=== PATIENT | female | born 1960 ===

== ENCOUNTER 2017-06-24 01:38 | Inpatient (IN) | payer MEDICARE, MEDICAID ==
[2017-06-24 01:51] VITALS: BMI 31.6
[2017-06-24] MEDS ORDERED: Sodium Chloride 0.9% 1,000 ML IV STA (02:00)
[2017-06-24 02:24] LABS: BASO % 0.5 % (0.0-2.0); EOS # 0.1 K/uL (0.0-0.7); EOS % 1.4 % (0.0-4.0); LYMPH # 1.1 K/uL (1.0-4.3); LYMPH % 14.1 % (20.0-40.0); MEAN CELL VOLUME 84.3 fl (81.0-99.0); MEAN CORPUSCULAR HEMOGLOBIN 28.9 pg (27.0-31.0); MEAN CORPUSCULAR HGB CONC 34.3 g/dL (33.0-37.0); MEAN PLATELET VOLUME 8.6 fl (7.2-11.7); MONO # 0.4 K/uL (0.0-0.8); MONO % 4.7 % (0.0-10.0); NEUT # 6.4 K/uL (1.8-7.0); NEUT % 79.3 % (50.0-75.0); NRBC % 0.1 % (0.0-0.0); RED CELL DISTRIBUTION WIDTH 14.4 % (11.5-14.5)
--- NOTE | 2017-06-24 02:25 | ED PDOC ---
HPI: Abdomen Time Seen by Provider: 06/24/17 01:51 Chief Complaint (Nursing): Abdominal Pain Chief Complaint (Provider): Abdominal pain History Per: Patient History/Exam Limitations: no limitations Onset/Duration Of Symptoms: Hrs (7) Current Symptoms Are (Timing): Still Present Context: Food Severity: Mild Location Of Pain/Discomfort: Epigastric Quality Of Discomfort: "Pain" Additional History Per: Patient Additional Complaint(s): 57 y/o female hx of HTN, c/o abdominal pain associated with nausea and vomiting for 7 hrs. Patient reports onset began after eating a turkey sandwich. Patient notes 3 episodes of NBNB vomiting. Pain is to the epigastric area that radiates to the mid-back. Denies fever or diarrhea. No cough, chest pain, or SOB. Past Medical History Reviewed: Historical Data, Nursing Documentation, Vital Signs Vital Signs: Last Vital Signs Temp 98.7 F 06/24/17 01:51 Pulse 58 L 06/24/17 01:51 Resp 16 06/24/17 01:51 BP 153/89 H 06/24/17 01:51 Pulse Ox 98 06/24/17 06:34 - Medical History PMH: Arthritis, Depression, Hyperthyroidism Denies: Chronic Kidney Disease - Family History Family History: States: Unknown Family Hx - Home Medications Home Medications: Ambulatory Orders Medication Instructions Recorded Baclofen 10 mg PO QID 07/04/14 FLUoxetine [Prozac] 10 mg PO DAILY 07/04/14 Gabapentin [Neurontin] 300 mg PO TID 07/04/14 Propylthiouracil 50 mg PO DAILY 07/04/14 Ibuprofen [Motrin] 600 mg PO Q6 PRN #20 tab 07/26/14 Ondansetron ODT [Zofran ODT] 4 mg PO Q6 PRN #16 odt 06/24/17 traMADol [Ultram] 50 mg PO Q6 PRN #12 tab 06/24/17 - Allergies Allergies/Adverse Reactions: Allergies Allergy/AdvReac Type Severity Reaction Status Date / Time latex Allergy RASH Verified 06/24/17 01:51 Review of Systems ROS Statement: Except As Marked, All Systems Reviewed And Found Negative Constitutional: Negative for: Fever Cardiovascular: Negative for: Chest Pain Respiratory: Negative for: Cough, Shortness of Breath Gastrointestinal: Positive for: Nausea, Vomiting (NBNB), Abdominal Pain. Negative for: Diarrhea Physical Exam - Reviewed Nursing Documentation Reviewed: Yes Vital Signs Reviewed: Yes - Physical Exam Appears: Positive for: Non-toxic, Uncomfortable Head Exam: Positive for: ATRAUMATIC Skin: Positive for: Normal Color, Warm, DRY Cardiovascular/Chest: Positive for: Regular Rate, Rhythm. Negative for: Murmur Respiratory: Positive for: Normal Breath Sounds. Negative for: Rales, Rhonchi, Wheezing Gastrointestinal/Abdominal: Positive for: Soft, Tenderness (Epigastric and RUQ tenderness). Negative for: Guarding, Rebound Neurologic/Psych: Positive for: Alert, Oriented - Laboratory Results Result Diagrams: 06/24/17 02:21 06/24/17 02:21 - ECG O2 Sat by Pulse Oximetry: 98 (RA) Pulse Ox Interpretation: Normal Medical Decision Making Medical Decision Making: Impression: * 57 y/o female hx of HTN, c/o abdominal pain associated with nausea and vomiting for 7 hrs. Plans: * EKG * Blood labs * Pepcid * Toradol * IV fluids * Zofran * UA Patient refused morphine. Patient was given toradol. DDx: Abdominal pain with nausea and vomiting. EXAM: CT Abdomen and Pelvis With Intravenous Contrast CLINICAL HISTORY: 57 years old, female; Pain; Abdominal pain; Generalized; Additional info: Abd pain TECHNIQUE: Axial computed tomography images of the abdomen and pelvis with intravenous contrast. All CT scans at this facility use one or more dose reduction techniques, viz.: automated exposure control; ma/kV adjustment per patient size (including targeted exams where dose is matched to indication; i.e. head); or iterative reconstruction technique. 651 images are submitted. Axial images are submitted and lung windows. Coronal and sagittal reformatted images were created and reviewed. CONTRAST: 95 mL of omnipaque administered intravenously. COMPARISON: No relevant prior studies available. FINDINGS: Lower thorax: Mild parabronchial cuffing, which can be seen with bronchitis, reactive airway disease or viral pneumonitis versus mild failure.Bibasilar nonspecific infiltrates are present, with haziness of the lungs consistent with atelectasis or pneumonia versus edema. Correlation with patient's hydration status may be helpful. Small hiatal hernia. ABDOMEN: Liver: Fatty liver. Gallbladder and bile ducts: Partially distended gallbladder with multiple gallstones. Pancreas: Unremarkable. No mass. No ductal dilation. Spleen: Left upper quadrant splenules. Adrenals: Unremarkable. No mass. Kidneys and ureters: Unremarkable. No solid mass. No hydronephrosis. Stomach and bowel: Diverticulosis. No obstruction. No mucosal thickening. Appendix: Normal appendix. PELVIS: Bladder: Distended bladder. Reproductive: Uterus is seen. ABDOMEN and PELVIS: Intraperitoneal space: Unremarkable. No free air. No significant fluid collection. Bones/joints: Degenerative changes are noted within the spine. L5-S1 vacuum degenerative disc disease. No acute fracture. No dislocation. Soft tissues: Unremarkable. Vasculature: Pelvic phleboliths. The aorta is normal in caliber and there are no hetal-aortic collections. No abdominal aortic aneurysm. Lymph nodes: Unremarkable. No enlarged lymph nodes. IMPRESSION: 1. Mild parabronchial cuffing, which can be seen with bronchitis, reactive airway disease or viral pneumonitis versus mild failure.Bibasilar nonspecific infiltrates are present, with haziness of the lungs consistent with atelectasis or pneumonia versus edema. Correlation with patient' s hydration status may be helpful. 2. Partially distended gallbladder with multiple gallstones. Correlation with internal medicine evaluation and further workup or followup as recommended by patient's clinical data. 05:00. patient's labs were reviewed and shows no clinically significant abnormalities. Patient advised to follow up with her PMD and surgical services for further evaluation and to return if symptoms worsens. RN reports subsequently that patient continues to c/o abdominal pain. APtient administered 2 additional dosages of morphine (4mg) w/o signoificant relief. Patient will be hospitalized as observation status Dx Cholelithiasis, Intractable Abd Pain Case referred to Boris Payton NP covering Dr Yoon (medicine production generalist) Scribe Attestation: Documented by Johnson Rodney, acting as a scribe for Holland Paredes. Provider Scribe Attestation: All medical record entries made by the Scribe were at my direction and personally dictated by me. I have reviewed the chart and agree that the record accurately reflects my personal performance of the history, physical exam, medical decision making, and the department course for this patient. I have also personally directed, reviewed, and agree with the discharge instructions and disposition. Disposition - Clinical Impression Clinical Impression: Cholelithiasis, Intractable abdominal pain - Patient ED Disposition Is Patient to be Admitted: Yes Counseled Patient/Family Regarding: Studies Performed, Diagnosis - Disposition Disposition Time: 05:00 Condition: FAIR Prescriptions: Ondansetron ODT [Zofran ODT] 4 mg PO Q6 PRN #16 odt PRN Reason: Nausea/Vomiting traMADol [Ultram] 50 mg PO Q6 PRN #12 tab PRN Reason: abdominal pain Instructions: Gallstones (ED), Low Fat Diet (GEN) Forms: [employer] (Ghanaian) Print Language: SAMI Patient Signed Over To: Dayanara Duarte - Pt Status Changed To: Hospital Disposition Of: Observation
[2017-06-24 02:33] LABS: ALB/GLOB RATIO 1.3 (1.0-2.1); ALKALINE PHOSPHATASE 100 U/L (38-126); ALT/SGPT 34 U/L (9-52); AST/SGOT 31 U/L (14-36); BILIRUBIN,TOTAL 0.6 mg/dl (0.2-1.3); BLOOD UREA NITROGEN 18 mg/dl (7-17); CALCIUM 9.7 mg/dL (8.4-10.2); CARBON DIOXIDE 26 mmol/L (22-30); CHLORIDE 104 mmol/L (98-107); GFR AFRICAN-AMERICAN > 60; GLUCOSE,RANDOM 175 mg/dL (65-105); LIPASE 60 U/L (23-300); POTASSIUM 4.3 MMOL/L (3.6-5.0); SODIUM 143 mmol/l (132-148); TOTAL PROTEIN 8.4 G/DL (6.3-8.2)
[2017-06-24] MEDS ORDERED: Iohexol 300 100 ML IJ ONE (03:53)
[2017-06-24] MEDS ORDERED: Sodium Chloride 0.9% 50 ML IV ONE (03:54)
--- NOTE | 2017-06-24 05:10 | CT ---
EXAM: CT Abdomen and Pelvis With Intravenous Contrast CLINICAL HISTORY: 57 years old, female; Pain; Abdominal pain; Generalized; Additional info: Abd pain TECHNIQUE: Axial computed tomography images of the abdomen and pelvis with intravenous contrast. All CT scans at this facility use one or more dose reduction techniques, viz.: automated exposure control; ma/kV adjustment per patient size (including targeted exams where dose is matched to indication; i.e. head); or iterative reconstruction technique. 651 images are submitted. Axial images are submitted and lung windows. Coronal and sagittal reformatted images were created and reviewed. CONTRAST: 95 mL of omnipaque administered intravenously. COMPARISON: No relevant prior studies available. FINDINGS: Lower thorax: Mild parabronchial cuffing, which can be seen with bronchitis, reactive airway disease or viral pneumonitis versus mild failure.Bibasilar nonspecific infiltrates are present, with haziness of the lungs consistent with atelectasis or pneumonia versus edema. Correlation with patient's hydration status may be helpful. Small hiatal hernia. ABDOMEN: Liver: Fatty liver. Gallbladder and bile ducts: Partially distended gallbladder with multiple gallstones. Pancreas: Unremarkable. No mass. No ductal dilation. Spleen: Left upper quadrant splenules. Adrenals: Unremarkable. No mass. Kidneys and ureters: Unremarkable. No solid mass. No hydronephrosis. Stomach and bowel: Diverticulosis. No obstruction. No mucosal thickening. Appendix: Normal appendix. PELVIS: Bladder: Distended bladder. Reproductive: Uterus is seen. ABDOMEN and PELVIS: Intraperitoneal space: Unremarkable. No free air. No significant fluid collection. Bones/joints: Degenerative changes are noted within the spine. L5-S1 vacuum degenerative disc disease. No acute fracture. No dislocation. Soft tissues: Unremarkable. Vasculature: Pelvic phleboliths. The aorta is normal in caliber and there are no hetal-aortic collections. No abdominal aortic aneurysm. Lymph nodes: Unremarkable. No enlarged lymph nodes. IMPRESSION: 1. Mild parabronchial cuffing, which can be seen with bronchitis, reactive airway disease or viral pneumonitis versus mild failure.Bibasilar nonspecific infiltrates are present, with haziness of the lungs consistent with atelectasis or pneumonia versus edema. Correlation with patient's hydration status may be helpful. 2. Partially distended gallbladder with multiple gallstones. Correlation with internal medicine evaluation and further workup or followup as recommended by patient's clinical data.
[2017-06-24 05:33] LABS: RBC URINE 1 /hpf (0-3); URINE BILIRUBIN NEGATIVE (NEGATIVE); URINE BLOOD NEGATIVE (NEGATIVE); URINE COLOR STRAW (YELLOW); URINE GLUCOSE (UA) 50 mg/dL (Normal); URINE KETONE TRACE mg/dL (NEGATIVE); URINE LEUKOCYTE ESTERASE NEG Leu/uL (Negative); URINE PROTEIN 100 mg/dL (NEGATIVE); URINE UROBILINOGEN 0.2-1.0 mg/dL (0.2-1.0); WBC URINE 1 /hpf (0-5)
[2017-06-24] MEDS: Sodium Chloride 0.9% 1,000 ML IV SCH ×2 (08:33→14:56)
[2017-06-24 08:42] LABS: BASO % 0.4 % (0.0-2.0); EOS % 0.1 % (0.0-4.0); HEMATOCRIT 44.6 % (34.0-47.0); LYMPH % 8.5 % (20.0-40.0); MEAN CELL VOLUME 83.6 fl (81.0-99.0); MEAN CORPUSCULAR HGB CONC 34.7 g/dL (33.0-37.0); MEAN PLATELET VOLUME 8.5 fl (7.2-11.7); MONO # 0.5 K/uL (0.0-0.8); MONO % 4.4 % (0.0-10.0); PLATELET COUNT 220 K/uL (130-400); RED CELL DISTRIBUTION WIDTH 14.2 % (11.5-14.5); WHITE BLOOD COUNT 11.4 K/uL (4.8-10.8)
--- NOTE | 2017-06-24 08:48 | CP.PCM.HP ---
History of Present Illness - History of Present Illness History of Present Illness: pt admitted for cholelithiasis/biliary colic ztarteing yesterday. no f/c, n/v/ d. pain to ruq. incr w/ resp/palp. jct noted. us pending.surgery consult appriciated. Present on Admission - Present on Admission Any Indicators Present on Admission: No Review of Systems - Gastrointestinal Gastrointestinal: As Per HPI, Abdominal Pain Past Patient History - Past Medical History & Family History Past Medical History?: Yes - Past Social History Smoking Status: Former Smoker - CARDIAC Hx Cardiac Disorders: Yes - PULMONARY Hx Respiratory Disorders: No - NEUROLOGICAL Hx Neurological Disorder: No - HEENT Hx HEENT Problems: No - RENAL Hx Chronic Kidney Disease: No - ENDOCRINE/METABOLIC Hx Endocrine Disorders: Yes - HEMATOLOGICAL/ONCOLOGICAL Hx Blood Disorders: No - INTEGUMENTARY Hx Dermatological Problems: No - MUSCULOSKELETAL/RHEUMATOLOGICAL Hx Arthritis: Yes - GASTROINTESTINAL Hx Gastrointestinal Disorders: No - GENITOURINARY/GYNECOLOGICAL Hx Genitourinary Disorders: No - PSYCHIATRIC Hx Depression: Yes - SURGICAL HISTORY Hx Surgeries: Yes Hx Hysterectomy: Yes Hx Orthopedic Surgery: Yes (neck surgery-2011) - ANESTHESIA Hx Anesthesia: Yes Hx Anesthesia Reactions: No Hx Malignant Hyperthermia: No Meds Home Medications: Home Medication List Medication Instructions Recorded Confirmed Type Ondansetron ODT [Zofran ODT] 4 mg PO Q6 PRN #16 odt 06/24/17 Rx traMADol [Ultram] 50 mg PO Q6 PRN #12 tab 06/24/17 Rx Allergies/Adverse Reactions: Allergies Allergy/AdvReac Type Severity Reaction Status Date / Time latex Allergy RASH Verified 06/24/17 01:51 Physical Exam - Constitutional Appears: Well, Non-toxic, No Acute Distress - Head Exam Head Exam: ATRAUMATIC, NORMAL INSPECTION, NORMOCEPHALIC - Eye Exam Eye Exam: EOMI, Normal appearance, PERRL Pupil Exam: NORMAL ACCOMODATION, PERRL - ENT Exam ENT Exam: Mucous Membranes Moist, Normal Exam - Neck Exam Neck exam: Positive for: Normal Inspection - Respiratory Exam Respiratory Exam: Clear to Auscultation Bilateral, NORMAL BREATHING PATTERN - Cardiovascular Exam Cardiovascular Exam: REGULAR RHYTHM, RRR, +S1, +S2 - GI/Abdominal Exam GI & Abdominal Exam: Normal Bowel Sounds, Soft, Tenderness - Extremities Exam Extremities exam: Positive for: full ROM, normal capillary refill, normal inspection, pedal pulses present - Back Exam Back exam: NORMAL INSPECTION - Neurological Exam Neurological exam: Alert, CN II-XII Intact, Normal Gait, Oriented x3, Reflexes Normal - Psychiatric Exam Psychiatric exam: Normal Affect, Normal Mood - Skin Skin Exam: Dry, Intact, Normal Color, Warm Results - Vital Signs Recent Vital Signs: Last Vital Signs Temp 98.9 F 06/24/17 08:34 Pulse 66 06/24/17 08:34 Resp 16 06/24/17 08:34 BP 126/86 06/24/17 08:34 Pulse Ox 98 06/24/17 06:43 - Labs Result Diagrams: 06/24/17 08:20 06/24/17 08:20 Labs: Laboratory Results - last 24 hr 06/24/17 06/24/17 06/24/17 02:21 02:21 04:30 WBC 8.0 RBC 5.34 H Hgb 15.4 Hct 45.0 MCV 84.3 MCH 28.9 MCHC 34.3 RDW 14.4 Plt Count 215 MPV 8.6 Neut % (Auto) 79.3 H Lymph % (Auto) 14.1 L [place] % (Auto) 4.7 Eos % (Auto) 1.4 Baso % (Auto) 0.5 Neut # 6.4 Lymph # 1.1 [place] # 0.4 Eos # 0.1 Baso # 0.0 Sodium 143 Potassium 4.3 Chloride 104 Carbon Dioxide 26 Anion Gap 18 BUN 18 H Creatinine 0.9 Est GFR ( Amer) > 60 Est GFR (Non-Af Amer) > 60 Random Glucose 175 H Calcium 9.7 Total Bilirubin 0.6 AST 31 ALT 34 Alkaline Phosphatase 100 Total Protein 8.4 H Albumin 4.8 Globulin 3.6 Albumin/Globulin Ratio 1.3 Lipase 60 Urine Color Straw Urine Clarity Clear Urine pH 8.0 Ur Specific [place] 1.029 Urine Protein 100 Urine Glucose (UA) 50 Urine Ketones Trace Urine Blood Negative Urine Nitrate Negative Urine Bilirubin Negative Urine Urobilinogen 0.2-1.0 Ur Leukocyte Esterase Neg Urine RBC (Auto) 1 Urine Microscopic WBC 1 Ur Squamous Epith Cells 1 06/24/17 08:20 WBC 11.4 H RBC 5.33 H Hgb 15.5 Hct 44.6 MCV 83.6 MCH 29.0 MCHC 34.7 RDW 14.2 Plt Count 220 MPV 8.5 Neut % (Auto) Lymph % (Auto) 8.5 L [place] % (Auto) 4.4 Eos % (Auto) 0.1 Baso % (Auto) 0.4 Neut # Lymph # 1.0 [place] # 0.5 Eos # 0.0 Baso # 0.0 Sodium Potassium Chloride Carbon Dioxide Anion Gap BUN Creatinine Est GFR ( Amer) Est GFR (Non-Af Amer) Random Glucose Calcium Total Bilirubin AST ALT Alkaline Phosphatase Total Protein Albumin Globulin Albumin/Globulin Ratio Lipase Urine Color Urine Clarity Urine pH Ur Specific [place] Urine Protein Urine Glucose (UA) Urine Ketones Urine Blood Urine Nitrate Urine Bilirubin Urine Urobilinogen Ur Leukocyte Esterase Urine RBC (Auto) Urine Microscopic WBC Ur Squamous Epith Cells Assessment & Plan (1) DVT prophylaxis Assessment and Plan: scd nad aehose ambulation hold anticoag until surgical option r/o Status: Acute (2) Cholelithiasis Assessment and Plan: pain control surgery abd us pendign surgical input for outpt/vs inpt proceudre Status: Acute Decision To Admit - Pt Status Changed To: Hospital Disposition Of: Observation - . Bed Request Type: Med/Surg Admitting Physician: Maximino Yoon
[2017-06-24 09:16] LABS: ALB/GLOB RATIO 1.4 (1.0-2.1); ALKALINE PHOSPHATASE 92 U/L (38-126); ALT/SGPT 39 U/L (9-52); AST/SGOT 32 U/L (14-36); BILIRUBIN,TOTAL 0.5 mg/dl (0.2-1.3); BLOOD UREA NITROGEN 13 mg/dl (7-17); CARBON DIOXIDE 26 mmol/L (22-30); CHLORIDE 102 mmol/L (98-107); GFR AFRICAN-AMERICAN > 60; GLUCOSE,RANDOM 145 mg/dL (65-105); LIPASE 48 U/L (23-300); POTASSIUM 4.4 MMOL/L (3.6-5.0); SODIUM 141 mmol/l (132-148); TOTAL PROTEIN 8.3 G/DL (6.3-8.2)
[2017-06-24] MEDS ORDERED: Ciprofloxacin 400mg/200ml D5W 400 MG/200 ML BAG IVPB SCH (09:30)
[2017-06-24 10:06] LABS: NEUTROPHIL 84 % (42-75); TOTAL CELLS COUNTED 100
[2017-06-24 10:08] LABS: LARGE PLATELETS PRESENT
--- NOTE | 2017-06-24 11:12 | CP.PCM.CON ---
History of Present Illness - History of Present Illness History of Present Illness: Surgery: Dr. Sewell CC: right upper abdominal pain HPI: Patient is a 57 y/o female who presents complaining of acute onset right upper abdominal pain that started around 6pm last night. She describes the pain as severe and stabbing in nature. She states the pain radiates to the epigastric area and the right flank. She denies having pain like this before. She reports having associated nausea and 3x episodes of nonbilious nonbloody vomit. She denies f/c diarrhea or constipation. PMH: HTN, c-spine surgery PSH: MARY Social: denies ETOH, tobacco, or drug use Review of Systems - Review of Systems All systems: reviewed and no additional remarkable complaints except Review of Systems: unless stated in HPI Past Patient History - Past Medical History & Family History Past Medical History?: Yes - Past Social History Smoking Status: Never Smoked - CARDIAC Hx Cardiac Disorders: Yes Hx Hypertension: Yes - PULMONARY Hx Respiratory Disorders: No - NEUROLOGICAL Hx Neurological Disorder: No - HEENT Hx HEENT Problems: No - RENAL Hx Chronic Kidney Disease: No - ENDOCRINE/METABOLIC Hx Endocrine Disorders: Yes - HEMATOLOGICAL/ONCOLOGICAL Hx Blood Disorders: No - INTEGUMENTARY Hx Dermatological Problems: No - MUSCULOSKELETAL/RHEUMATOLOGICAL Hx Arthritis: Yes Hx Falls: No - GASTROINTESTINAL Hx Gastrointestinal Disorders: No - GENITOURINARY/GYNECOLOGICAL Hx Genitourinary Disorders: No - PSYCHIATRIC Hx Depression: Yes Hx Substance Use: No - SURGICAL HISTORY Hx Surgeries: Yes Hx Hysterectomy: Yes Hx Orthopedic Surgery: Yes (neck surgery-2011) - ANESTHESIA Hx Anesthesia: Yes Hx Anesthesia Reactions: No Hx Malignant Hyperthermia: No Meds Home Medications: Home Medication List Medication Instructions Recorded Confirmed Type Ondansetron ODT [Zofran ODT] 4 mg PO Q6 PRN #16 odt 06/24/17 Rx traMADol [Ultram] 50 mg PO Q6 PRN #12 tab 06/24/17 Rx Allergies/Adverse Reactions: Allergies Allergy/AdvReac Type Severity Reaction Status Date / Time latex Allergy RASH Verified 06/24/17 01:51 - Medications Medications: Current Medications Famotidine (Pepcid) 20 mg IVP Q12 COTY Last Admin: 06/24/17 11:02 Dose: 20 mg Sodium Chloride (Sodium Chloride 0.9%) 1,000 mls @ 150 mls/hr IV .Q6H40M [facility] Stop: 06/25/17 07:46 Last Admin: 06/24/17 08:33 Dose: 150 mls/hr Piperacillin Sod/Tazobactam (Sod 3.375 gm/ Sodium Chloride) 100 mls @ 100 mls/ hr IVPB Q6 COTY PRN Reason: Protocol Ketorolac Tromethamine (Toradol) 30 mg IVP Q6 PRN PRN Reason: pain 6-10 Ondansetron HCl (Zofran Inj) 4 mg IVP Q6 PRN PRN Reason: Nausea/Vomiting Physical Exam - Constitutional Appears: Non-toxic, No Acute Distress - Head Exam Head Exam: ATRAUMATIC, NORMOCEPHALIC - Eye Exam Eye Exam: EOMI, Normal appearance - ENT Exam ENT Exam: Mucous Membranes Moist - Respiratory Exam Respiratory Exam: NORMAL BREATHING PATTERN. absent: Respiratory Distress - Cardiovascular Exam Cardiovascular Exam: REGULAR RHYTHM. absent: Tachycardia - GI/Abdominal Exam GI & Abdominal Exam: Soft, Tenderness (moderate RUQ TTP w/ + Colindres's sign ). absent: Distended, Guarding, Hernia, Rebound Additional comments: umbilical scar well healed and Low transverse incision well healed - Extremities Exam Extremities exam: Positive for: normal inspection. Negative for: calf tenderness - Neurological Exam Neurological exam: Alert, Oriented x3 - Psychiatric Exam Psychiatric exam: Normal Affect, Normal Mood - Skin Skin Exam: Normal Color, Warm Results - Vital Signs Recent Vital Signs: Last Vital Signs Temp 98.3 F 06/24/17 09:19 Pulse 60 06/24/17 09:19 Resp 20 06/24/17 09:19 BP 172/96 H 06/24/17 09:19 Pulse Ox 100 06/24/17 09:19 - Labs Result Diagrams: 06/24/17 08:20 06/24/17 08:20 Labs: Laboratory Results - last 24 hr 06/24/17 06/24/17 06/24/17 02:21 02:21 04:30 WBC 8.0 RBC 5.34 H Hgb 15.4 Hct 45.0 MCV 84.3 MCH 28.9 MCHC 34.3 RDW 14.4 Plt Count 215 MPV 8.6 Neut % (Auto) 79.3 H Lymph % (Auto) 14.1 L [place] % (Auto) 4.7 Eos % (Auto) 1.4 Baso % (Auto) 0.5 Neut # 6.4 Lymph # 1.1 [place] # 0.4 Eos # 0.1 Baso # 0.0 Neutrophils % (Manual) Band Neutrophils % Lymphocytes % (Manual) Monocytes % (Manual) Platelet Estimate Large Platelets Poikilocytosis (manual Anisocytosis (manual) Tear Drop Cells Ovalocytes Sodium 143 Potassium 4.3 Chloride 104 Carbon Dioxide 26 Anion Gap 18 BUN 18 H Creatinine 0.9 Est GFR ( Amer) > 60 Est GFR (Non-Af Amer) > 60 Random Glucose 175 H Calcium 9.7 Total Bilirubin 0.6 AST 31 ALT 34 Alkaline Phosphatase 100 Total Protein 8.4 H Albumin 4.8 Globulin 3.6 Albumin/Globulin Ratio 1.3 Lipase 60 Urine Color Straw Urine Clarity Clear Urine pH 8.0 Ur Specific [place] 1.029 Urine Protein 100 Urine Glucose (UA) 50 Urine Ketones Trace Urine Blood Negative Urine Nitrate Negative Urine Bilirubin Negative Urine Urobilinogen 0.2-1.0 Ur Leukocyte Esterase Neg Urine RBC (Auto) 1 Urine Microscopic WBC 1 Ur Squamous Epith Cells 1 06/24/17 06/24/17 08:20 08:20 WBC 11.4 H RBC 5.33 H Hgb 15.5 Hct 44.6 MCV 83.6 MCH 29.0 MCHC 34.7 RDW 14.2 Plt Count 220 MPV 8.5 Neut % (Auto) Lymph % (Auto) 8.5 L [place] % (Auto) 4.4 Eos % (Auto) 0.1 Baso % (Auto) 0.4 Neut # Lymph # 1.0 [place] # 0.5 Eos # 0.0 Baso # 0.0 Neutrophils % (Manual) 84 H Band Neutrophils % 1 Lymphocytes % (Manual) 11 L Monocytes % (Manual) 4 Platelet Estimate Normal Large Platelets Present Poikilocytosis (manual Slight Anisocytosis (manual) Slight Tear Drop Cells Slight Ovalocytes Slight Sodium 141 Potassium 4.4 Chloride 102 Carbon Dioxide 26 Anion Gap 17 BUN 13 Creatinine 0.7 Est GFR ( Amer) > 60 Est GFR (Non-Af Amer) > 60 Random Glucose 145 H Calcium 9.0 Total Bilirubin 0.5 AST 32 ALT 39 Alkaline Phosphatase 92 Total Protein 8.3 H Albumin 4.8 Globulin 3.5 Albumin/Globulin Ratio 1.4 Lipase 48 Urine Color Urine Clarity Urine pH Ur Specific [place] Urine Protein Urine Glucose (UA) Urine Ketones Urine Blood Urine Nitrate Urine Bilirubin Urine Urobilinogen Ur Leukocyte Esterase Urine RBC (Auto) Urine Microscopic WBC Ur Squamous Epith Cells - Impressions Impression: CT: w/ gallstones U/S: + stones, wall 2.1mm, CBD 7mm, no hetal-cholecystic fluid Assessment & Plan - Assessment and Plan (Free Text) Assessment: 57 y/o female w/ biliary colic, possible acute cholecystitis Plan: -NPO -IV abx -IVFs -pain control -final read of u/s -pending results determine surgical intervention or need for further studies -further recs per Dr. Donato Ponce PGY3
--- NOTE | 2017-06-24 13:20 | US ---
HISTORY: COMPARISON: Correlation made with CT scan abdomen pelvis 06/24/2017 at 4:22 a.m. TECHNIQUE: Sonographic evaluation of the right upper quadrant of the abdomen. FINDINGS: LIVER: Measures approximately 16.8 cm in length. Smooth contour diana. Minor diffuse fatty hepatic infiltration felt to be present. . No obvious hepatic mass or collection. . No intrahepatic bile duct dilatation. GALLBLADDER: Gallbladder contains multiple mobile intraluminal gallbladder calculi. No wall edema or pericholecystic fluid collections. Positive sonographic Colindres sign. COMMON BILE DUCT: Dilated measuring approximately 7.3 mm. No definitive intraluminal common bile duct calculi (choledocholithiasis) PANCREAS: Unremarkable as visualized. No mass. No ductal dilatation. RIGHT KIDNEY: Measures approximately 11.8 x 5.4 x 4.6 cm in length. Normal echogenicity. No calculus, mass, or hydronephrosis. AORTA: No aneurysmal dilatation. IVC: Unremarkable. OTHER FINDINGS: IMPRESSION: Cholelithiasis with positive sonographic Colindres sign. Mild dilatation of the common bile duct. No definitive evidence of choledocholithiasis
[2017-06-24] MEDS: Piperacillin/Tazobact 3.375 GM in Sodium Chloride 0.9% 100 ML IVPB SCH ×2 (16:56→21:00)
[2017-06-25] MEDS: Sodium Chloride 0.9% 1,000 ML IV SCH ×2 (02:12→04:43)
[2017-06-25] MEDS: Piperacillin/Tazobact 3.375 GM in Sodium Chloride 0.9% 100 ML IVPB SCH ×4 (04:43→21:37)
--- NOTE | 2017-06-25 06:39 | CARD ---
APPROVED REPORT EKG Measurement Heart [id number] <Conclusion> Sinus bradycardia Otherwise normal ECG
[2017-06-25 07:07] LABS: BASO % 0.5 % (0.0-2.0); EOS # 0.3 K/uL (0.0-0.7); EOS % 3.5 % (0.0-4.0); HEMATOCRIT 40.8 % (34.0-47.0); LYMPH # 2.3 K/uL (1.0-4.3); LYMPH % 29.9 % (20.0-40.0); MEAN CELL VOLUME 83.7 fl (81.0-99.0); MEAN CORPUSCULAR HEMOGLOBIN 28.9 pg (27.0-31.0); MEAN CORPUSCULAR HGB CONC 34.5 g/dL (33.0-37.0); MEAN PLATELET VOLUME 8.7 fl (7.2-11.7); MONO # 0.7 K/uL (0.0-0.8); NEUT # 4.4 K/uL (1.8-7.0); NEUT % 57.1 % (50.0-75.0); WHITE BLOOD COUNT 7.7 K/uL (4.8-10.8)
[2017-06-25 07:25] LABS: ALB/GLOB RATIO 1.3 (1.0-2.1); ALKALINE PHOSPHATASE 71 U/L (38-126); ALT/SGPT 33 U/L (9-52); AST/SGOT 23 U/L (14-36); BILIRUBIN,TOTAL 0.8 mg/dl (0.2-1.3); BLOOD UREA NITROGEN 13 mg/dl (7-17); CALCIUM 8.3 mg/dL (8.4-10.2); CARBON DIOXIDE 23 mmol/L (22-30); CHLORIDE 109 mmol/L (98-107); GFR AFRICAN-AMERICAN > 60; GLUCOSE,RANDOM 106 mg/dL (65-105); POTASSIUM 3.8 MMOL/L (3.6-5.0); SODIUM 143 mmol/l (132-148); TOTAL PROTEIN 6.7 G/DL (6.3-8.2)
--- NOTE | 2017-06-25 07:37 | CP.PCM.PN ---
Subjective - Date & Time of Evaluation Date of Evaluation: 06/25/17 Time of Evaluation: 07:37 - Subjective Subjective: pt doing well, no f/c, n/v/d. am labs noted. for ata espinosa wednesday 06/27. pain controlled Objective - Vital Signs/Intake and Output Vital Signs (last 24 hours): Temp Pulse Resp BP Pulse Ox 97.6 F 60 20 121/64 96 06/25/17 01:00 06/25/17 01:00 06/25/17 01:00 06/25/17 01:00 06/25/17 01:00 - Medications Medications: Current Medications Famotidine (Pepcid) 20 mg IVP Q12 COTY Last Admin: 06/24/17 21:01 Dose: 20 mg Sodium Chloride (Sodium Chloride 0.9%) 1,000 mls @ 150 mls/hr IV .Q6H40M COTY Stop: 06/25/17 07:46 Last Admin: 06/25/17 04:43 Dose: 150 mls/hr Piperacillin Sod/Tazobactam (Sod 3.375 gm/ Sodium Chloride) 100 mls @ 100 mls/ hr IVPB Q6 COTY PRN Reason: Protocol Last Admin: 06/25/17 04:43 Dose: 100 mls/hr Ketorolac Tromethamine (Toradol) 30 mg IVP Q6 PRN PRN Reason: pain 6-10 Last Admin: 06/24/17 16:59 Dose: 30 mg Ondansetron HCl (Zofran Inj) 4 mg IVP Q6 PRN PRN Reason: Nausea/Vomiting - Labs Labs: 06/25/17 05:30 06/25/17 05:30 - Constitutional Appears: Well, Non-toxic, No Acute Distress - Head Exam Head Exam: ATRAUMATIC, NORMAL INSPECTION, NORMOCEPHALIC - Eye Exam Eye Exam: EOMI, Normal appearance, PERRL Pupil Exam: NORMAL ACCOMODATION, PERRL - ENT Exam ENT Exam: Mucous Membranes Moist, Normal Exam - Neck Exam Neck Exam: Full ROM, Normal Inspection. absent: Lymphadenopathy - Respiratory Exam Respiratory Exam: Clear to Ausculation Bilateral, NORMAL BREATHING PATTERN - Cardiovascular Exam Cardiovascular Exam: REGULAR RHYTHM, RRR, +S1, +S2. absent: Murmur - GI/Abdominal Exam GI & Abdominal Exam: Soft, Tenderness, Normal Bowel Sounds Additional comments: ruq tenderness - Extremities Exam Extremities Exam: Full ROM, Normal Capillary Refill, Normal Inspection. absent : Joint Swelling, Pedal Edema - Back Exam Back Exam: NORMAL INSPECTION - Neurological Exam Neurological Exam: Alert, Awake, CN II-XII Intact, Normal Gait, Oriented x3 - Psychiatric Exam Psychiatric exam: Normal Affect, Normal Mood - Skin Skin Exam: Dry, Intact, Normal Color, Warm Assessment and Plan (1) DVT prophylaxis Assessment & Plan: scd and ae hose ambulation Status: Acute (2) Cholelithiasis Assessment & Plan: pain and nausea control surgery tuesday, npo p midnight tuesday ivf, npo pna ppx w/ ambulation and deep breathing Status: Acute
--- NOTE | 2017-06-25 11:35 | CP.PCM.PN ---
Subjective - Date & Time of Evaluation Date of Evaluation: 06/25/17 Time of Evaluation: 08:00 - Subjective Subjective: Patient seen and examined this AM. NAEO. Patient states that pain is improved, denies nausea, vomiting, and would like to eat Objective - Vital Signs/Intake and Output Vital Signs (last 24 hours): Temp Pulse Resp BP Pulse Ox 98.3 F 67 18 121/67 96 06/25/17 07:38 06/25/17 07:38 06/25/17 07:38 06/25/17 07:38 06/25/17 07:38 - Medications Medications: Current Medications Famotidine (Pepcid) 20 mg IVP Q12 COTY Last Admin: 06/25/17 08:58 Dose: 20 mg Piperacillin Sod/Tazobactam (Sod 3.375 gm/ Sodium Chloride) 100 mls @ 100 mls/ hr IVPB Q6 COTY PRN Reason: Protocol Last Admin: 06/25/17 04:43 Dose: 100 mls/hr Ketorolac Tromethamine (Toradol) 30 mg IVP Q6 PRN PRN Reason: pain 6-10 Last Admin: 06/25/17 09:55 Dose: 30 mg Ondansetron HCl (Zofran Inj) 4 mg IVP Q6 PRN PRN Reason: Nausea/Vomiting - Labs Labs: 06/25/17 05:30 06/25/17 05:30 - Constitutional Appears: Non-toxic, No Acute Distress - Head Exam Head Exam: ATRAUMATIC, NORMOCEPHALIC - Eye Exam Eye Exam: Normal appearance. absent: Conjunctival injection, Scleral icterus - ENT Exam ENT Exam: Mucous Membranes Moist, Normal Oropharynx - Respiratory Exam Respiratory Exam: NORMAL BREATHING PATTERN. absent: Accessory Muscle Use, Respiratory Distress - Cardiovascular Exam Cardiovascular Exam: RRR - GI/Abdominal Exam GI & Abdominal Exam: Soft, Tenderness (RUQ moderate pain). absent: Distended - Extremities Exam Extremities Exam: absent: Calf Tenderness, Pedal Edema, Tenderness - Neurological Exam Neurological Exam: Alert, Awake, Oriented x3 - Psychiatric Exam Psychiatric exam: Normal Affect, Normal Mood - Skin Skin Exam: Dry, Normal Color, Warm Assessment and Plan - Assessment and Plan (Free Text) Assessment: 57 y/o female w/ biliary colic, possible acute cholecystitis Plan: -CLD -IV abx -IVFs -pain and nausea control -trend CBC/CMP -Plan for OR on Tuesday for lap cholecystectomy Further recs per Dr. Rocael Norwood, PGY2
[2017-06-25] MEDS ORDERED: Sodium Chloride 0.9% 1,000 ML IV SCH (18:45)
[2017-06-26] MEDS: Piperacillin/Tazobact 3.375 GM in Sodium Chloride 0.9% 100 ML IVPB SCH ×4 (04:52→21:25)
[2017-06-26 06:56] LABS: BASO % 0.8 % (0.0-2.0); EOS # 0.5 K/uL (0.0-0.7); EOS % 7.9 % (0.0-4.0); HEMATOCRIT 37.4 % (34.0-47.0); LYMPH # 1.9 K/uL (1.0-4.3); LYMPH % 31.6 % (20.0-40.0); MEAN CELL VOLUME 84.4 fl (81.0-99.0); MEAN CORPUSCULAR HEMOGLOBIN 29.1 pg (27.0-31.0); MEAN CORPUSCULAR HGB CONC 34.5 g/dL (33.0-37.0); MEAN PLATELET VOLUME 8.9 fl (7.2-11.7); MONO # 0.6 K/uL (0.0-0.8); MONO % 9.9 % (0.0-10.0); NEUT # 3.1 K/uL (1.8-7.0); NEUT % 49.8 % (50.0-75.0); NRBC % 0.1 % (0.0-0.0); WHITE BLOOD COUNT 6.1 K/uL (4.8-10.8)
[2017-06-26 06:59] LABS: ALB/GLOB RATIO 1.2 (1.0-2.1); ALKALINE PHOSPHATASE 64 U/L (38-126); ALT/SGPT 36 U/L (9-52); AST/SGOT 23 U/L (14-36); BILIRUBIN,TOTAL 0.8 mg/dl (0.2-1.3); BLOOD UREA NITROGEN 13 mg/dl (7-17); CARBON DIOXIDE 24 mmol/L (22-30); CHLORIDE 109 mmol/L (98-107); GFR AFRICAN-AMERICAN > 60; GLUCOSE,RANDOM 80 mg/dL (65-105); POTASSIUM 3.7 MMOL/L (3.6-5.0); SODIUM 143 mmol/l (132-148); TOTAL PROTEIN 6.2 G/DL (6.3-8.2)
[2017-06-26] MEDS ORDERED: Oxycodone/Acetaminophen 5/325 mg Tab PO PRN (08:36)
--- NOTE | 2017-06-26 09:18 | CP.PCM.PN ---
Subjective - Date & Time of Evaluation Date of Evaluation: 06/26/17 Time of Evaluation: 09:17 - Subjective Subjective: no compalints/distress. pain controlled. bw noted. med cleared for surgery todya. npo p midnight. Objective - Vital Signs/Intake and Output Vital Signs (last 24 hours): Temp Pulse Resp BP Pulse Ox 98.2 F 57 L 18 131/79 96 06/26/17 07:32 06/26/17 07:32 06/26/17 07:32 06/26/17 07:32 06/26/17 07:32 - Medications Medications: Current Medications Famotidine (Pepcid) 20 mg IVP Q12 [facility] Last Admin: 06/25/17 21:38 Dose: 20 mg Piperacillin Sod/Tazobactam (Sod 3.375 gm/ Sodium Chloride) 100 mls @ 100 mls/ hr IVPB Q6 COTY PRN Reason: Protocol Last Admin: 06/26/17 04:52 Dose: 100 mls/hr Sodium Chloride (Sodium Chloride 0.9%) 1,000 mls @ 100 mls/hr IV .Q10H [facility] Stop: 06/26/17 18:31 Last Admin: 06/26/17 04:53 Dose: 100 mls/hr Lactated Ringer's (Lactated Ringer's) 1,000 mls @ 125 mls/hr IV .Q8H [facility] Morphine Sulfate (Morphine) 4 mg IVP Q4 PRN PRN Reason: Pain, severe (8-10) Ondansetron HCl (Zofran Inj) 4 mg IVP Q6 PRN PRN Reason: Nausea/Vomiting Oxycodone/Acetaminophen (Percocet 5/325 Mg Tab) 1 tab PO Q6 PRN PRN Reason: Pain, moderate (4-7) Stop: 06/29/17 08:37 - Labs Labs: 06/26/17 05:30 06/26/17 05:30 - Constitutional Appears: Well, Non-toxic, No Acute Distress - Head Exam Head Exam: ATRAUMATIC, NORMAL INSPECTION, NORMOCEPHALIC - Eye Exam Eye Exam: EOMI, Normal appearance, PERRL Pupil Exam: NORMAL ACCOMODATION, PERRL - ENT Exam ENT Exam: Mucous Membranes Moist, Normal Exam - Neck Exam Neck Exam: Full ROM, Normal Inspection. absent: Lymphadenopathy - Respiratory Exam Respiratory Exam: Clear to Ausculation Bilateral, NORMAL BREATHING PATTERN - Cardiovascular Exam Cardiovascular Exam: REGULAR RHYTHM, RRR, +S1, +S2. absent: Murmur - GI/Abdominal Exam GI & Abdominal Exam: Soft, Normal Bowel Sounds. absent: Tenderness - Extremities Exam Extremities Exam: Full ROM, Normal Capillary Refill, Normal Inspection. absent : Joint Swelling, Pedal Edema - Back Exam Back Exam: NORMAL INSPECTION - Neurological Exam Neurological Exam: Alert, Awake, CN II-XII Intact, Normal Gait, Oriented x3 - Psychiatric Exam Psychiatric exam: Normal Affect, Normal Mood - Skin Skin Exam: Dry, Intact, Normal Color, Warm Assessment and Plan (1) DVT prophylaxis Status: Acute (2) Cholelithiasis Status: Acute - Assessment and Plan (Free Text) Assessment: (1) DVT prophylaxis Assessment & Plan: scd and ae hose ambulation Status: Acute (2) Cholelithiasis Assessment & Plan: pain and nausea control surgery tuesday, npo p midnight tuesday ivf, npo pna ppx w/ ambulation and deep breathing Status: Acute
--- NOTE | 2017-06-26 09:18 | CP.PCM.PN ---
Subjective - Date & Time of Evaluation Date of Evaluation: 06/26/17 Time of Evaluation: 08:40 - Subjective Subjective: Patient s/e this AM. NAEO. Patient denies any pain, nausea, or vomiting but is very hungry Objective - Vital Signs/Intake and Output Vital Signs (last 24 hours): Temp Pulse Resp BP Pulse Ox 98.2 F 57 L 18 131/79 96 06/26/17 07:32 06/26/17 07:32 06/26/17 07:32 06/26/17 07:32 06/26/17 07:32 - Medications Medications: Current Medications Famotidine (Pepcid) 20 mg IVP Q12 [facility] Last Admin: 06/25/17 21:38 Dose: 20 mg Piperacillin Sod/Tazobactam (Sod 3.375 gm/ Sodium Chloride) 100 mls @ 100 mls/ hr IVPB Q6 COTY PRN Reason: Protocol Last Admin: 06/26/17 04:52 Dose: 100 mls/hr Sodium Chloride (Sodium Chloride 0.9%) 1,000 mls @ 100 mls/hr IV .Q10H [facility] [place] Stop: 06/26/17 18:31 Last Admin: 06/26/17 04:53 Dose: 100 mls/hr Lactated Ringer's (Lactated Ringer's) 1,000 mls @ 125 mls/hr IV .Q8H [facility] Morphine Sulfate (Morphine) 4 mg IVP Q4 PRN PRN Reason: Pain, severe (8-10) Ondansetron HCl (Zofran Inj) 4 mg IVP Q6 PRN PRN Reason: Nausea/Vomiting Oxycodone/Acetaminophen (Percocet 5/325 Mg Tab) 1 tab PO Q6 PRN PRN Reason: Pain, moderate (4-7) Stop: 06/29/17 08:37 - Labs Labs: 06/26/17 05:30 06/26/17 05:30 - Constitutional Appears: Non-toxic, No Acute Distress - Head Exam Head Exam: ATRAUMATIC, NORMOCEPHALIC - Eye Exam Eye Exam: Normal appearance. absent: Conjunctival injection, Scleral icterus - ENT Exam ENT Exam: Mucous Membranes Moist, Normal Oropharynx - Respiratory Exam Respiratory Exam: NORMAL BREATHING PATTERN. absent: Accessory Muscle Use, Respiratory Distress - Cardiovascular Exam Cardiovascular Exam: RRR - GI/Abdominal Exam GI & Abdominal Exam: Soft, Tenderness (RUQ>LUQ). absent: Distended, Rigid, Rebound - Extremities Exam Extremities Exam: absent: Calf Tenderness, Pedal Edema, Tenderness - Neurological Exam Neurological Exam: Alert, Awake, Oriented x3 - Psychiatric Exam Psychiatric exam: Normal Affect, Normal Mood - Skin Skin Exam: Dry, Intact, Normal Color, Warm Assessment and Plan - Assessment and Plan (Free Text) Assessment: 57 y/o female w/ biliary colic, possible acute cholecystitis Plan: -CLD, NPO after midnight -IV abx -IVFs -pain and nausea control -trend CBC/CMP -Plan for OR on Tuesday for lap cholecystectomy Further recs per Dr. Rocael Norwood, PGY2
[2017-06-26] MEDS: Lactated Ringer's 1,000 ML IV SCH ×2 (09:37→23:17)
--- NOTE | 2017-06-26 09:59 | RAD ---
PROCEDURE: CHEST RADIOGRAPH, 1 VIEW HISTORY: pre-op eval COMPARISON: None available. FINDINGS: LUNGS: Clear. PLEURA: No pneumothorax or pleural fluid seen. CARDIOVASCULAR: Normal. Aorta appears to be normal in size. OSSEOUS STRUCTURES: No significant abnormalities. VISUALIZED UPPER ABDOMEN: Normal. OTHER FINDINGS: There is evidence of prior lower cervical spine surgery. IMPRESSION: No active disease.
[2017-06-27] MEDS: Lactated Ringer's 1,000 ML IV SCH ×3 (01:00→19:45)
[2017-06-27] MEDS: Piperacillin/Tazobact 3.375 GM in Sodium Chloride 0.9% 100 ML IVPB SCH ×3 (04:00→21:29)
[2017-06-27 06:37] LABS: HEMATOCRIT 36.6 % (34.0-47.0); MEAN CELL VOLUME 83.8 fl (81.0-99.0); MEAN CORPUSCULAR HEMOGLOBIN 28.7 pg (27.0-31.0); MEAN CORPUSCULAR HGB CONC 34.3 g/dL (33.0-37.0); RED CELL DISTRIBUTION WIDTH 13.9 % (11.5-14.5); WHITE BLOOD COUNT 5.2 K/uL (4.8-10.8)
[2017-06-27 06:52] LABS: ALB/GLOB RATIO 1.3 (1.0-2.1); ALKALINE PHOSPHATASE 67 U/L (38-126); ALT/SGPT 32 U/L (9-52); AST/SGOT 24 U/L (14-36); BILIRUBIN,TOTAL 0.8 mg/dl (0.2-1.3); BLOOD UREA NITROGEN 8 mg/dl (7-17); CALCIUM 8.4 mg/dL (8.4-10.2); CARBON DIOXIDE 26 mmol/L (22-30); CHLORIDE 109 mmol/L (98-107); GFR AFRICAN-AMERICAN > 60; GLUCOSE,RANDOM 96 mg/dL (65-105); POTASSIUM 3.9 MMOL/L (3.6-5.0); SODIUM 143 mmol/l (132-148); TOTAL PROTEIN 6.5 G/DL (6.3-8.2)
[2017-06-27 07:00] LABS: PARTIAL THROMBOPLASTIN TIME 29.9 Seconds (25.6-37.1)
--- NOTE | 2017-06-27 09:13 | CP.PCM.PN ---
Subjective - Date & Time of Evaluation Date of Evaluation: 06/27/17 Time of Evaluation: 09:12 - Subjective Subjective: pt doing well, pain controlled, bw noted and pt is med cleared for surgery. Objective - Vital Signs/Intake and Output Vital Signs (last 24 hours): Temp Pulse Resp BP Pulse Ox 98.5 F 57 L 20 146/86 98 06/27/17 08:35 06/27/17 08:35 06/27/17 08:35 06/27/17 08:35 06/27/17 08:35 - Medications Medications: Current Medications Famotidine (Pepcid) 20 mg IVP Q12 [facility] Last Admin: 06/27/17 08:50 Dose: 20 mg Piperacillin Sod/Tazobactam (Sod 3.375 gm/ Sodium Chloride) 100 mls @ 100 mls/ hr IVPB Q6 COTY PRN Reason: Protocol Last Admin: 06/27/17 04:00 Dose: 100 mls/hr Lactated Ringer's (Lactated Ringer's) 1,000 mls @ 125 mls/hr IV .Q8H [facility] Last Admin: 06/27/17 01:00 Dose: Not Given Morphine Sulfate (Morphine) 4 mg IVP Q4 PRN PRN Reason: Pain, severe (8-10) Ondansetron HCl (Zofran Inj) 4 mg IVP Q6 PRN PRN Reason: Nausea/Vomiting Oxycodone/Acetaminophen (Percocet 5/325 Mg Tab) 1 tab PO Q6 PRN PRN Reason: Pain, moderate (4-7) Stop: 06/29/17 08:37 - Labs Labs: 06/27/17 06:20 06/27/17 06:20 PT 13.0 Seconds (9.8-13.1) 06/27/17 06:20 INR 1.2 (0.9-1.2) 06/27/17 06:20 APTT 29.9 Seconds (25.6-37.1) 06/27/17 06:20 - Constitutional Appears: Well, Non-toxic, No Acute Distress - Head Exam Head Exam: ATRAUMATIC, NORMAL INSPECTION, NORMOCEPHALIC - Eye Exam Eye Exam: EOMI, Normal appearance, PERRL Pupil Exam: NORMAL ACCOMODATION, PERRL - ENT Exam ENT Exam: Mucous Membranes Moist, Normal Exam - Neck Exam Neck Exam: Full ROM, Normal Inspection. absent: Lymphadenopathy - Respiratory Exam Respiratory Exam: Clear to Ausculation Bilateral, NORMAL BREATHING PATTERN - Cardiovascular Exam Cardiovascular Exam: REGULAR RHYTHM, RRR, +S1, +S2. absent: Murmur - GI/Abdominal Exam GI & Abdominal Exam: Soft, Normal Bowel Sounds. absent: Tenderness - Extremities Exam Extremities Exam: Full ROM, Normal Capillary Refill, Normal Inspection. absent : Joint Swelling, Pedal Edema - Back Exam Back Exam: NORMAL INSPECTION - Neurological Exam Neurological Exam: Alert, Awake, CN II-XII Intact, Normal Gait, Oriented x3 - Psychiatric Exam Psychiatric exam: Normal Affect, Normal Mood - Skin Skin Exam: Dry, Intact, Normal Color, Warm Assessment and Plan (1) DVT prophylaxis Assessment & Plan: scd and aehose ambulation Status: Acute (2) Cholelithiasis Assessment & Plan: med cleared for surgery pain control surgery, npo for surgery adv diet postop cotn anbx Status: Acute
[2017-06-27] MEDS ORDERED: Bupivacaine 0.5% Inj(30mL) ONE (13:04)
[2017-06-27] MEDS ORDERED: Lidocaine 1% Inj (20ml) ONE (13:04)
[2017-06-27] MEDS ORDERED: ceFAZolin IV 1 gm in Dextrose 2 GM/100 ML BAG IVPB ONE (13:04)
[2017-06-27] MEDS ORDERED: Succinylcholine 200 mg/10 ml Inj IV ONE (14:24)
[2017-06-27] MEDS ORDERED: Lidocaine 4% (Laryng-O-Jet) Kit MM ONE (14:24)
[2017-06-27] MEDS ORDERED: Rocuronium 10 mg/ml (5 ml) ONE (14:24)
[2017-06-27] MEDS ORDERED: Propofol 10 mg/ml Inj (20 ML) ONE (14:24)
[2017-06-27] MEDS ORDERED: Phenylephrine 10 mg/ml Inj ONE (14:26)
[2017-06-27] MEDS ORDERED: Lactated Ringer's 1,000 ML IV ONE ×2 (15:14→16:30)
[2017-06-27] MEDS ORDERED: Midazolam 2 MG/2 ML VIAL ONE (15:15)
[2017-06-27] MEDS ORDERED: Piperacillin/Tazobact 3.375 gm Inj IVPB ONE (15:30)
[2017-06-27] MEDS ORDERED: Dexamethasone 4 mg/1 ml ONE (15:35)
[2017-06-27] MEDS ORDERED: Desflurane Inhalation Anesthetic Liq (240 ml) ONE (15:39)
[2017-06-27] MEDS ORDERED: Cellulose Hemostat 2X3 Sheet TP ONE (16:30)
[2017-06-27] MEDS ORDERED: Neostigmine Methylsulfate 2 MG/2 ML ML IV ONE (16:43)
[2017-06-27] MEDS ORDERED: Bupivacaine 0.5% 50 ML IJ ONE (17:10)
--- NOTE | 2017-06-27 17:18 | PCM.SURG1 ---
Surgeon's Initial Post Op Note - Surgeon's Notes Surgeon: Dr. Sewell Web Portal Developer: Dr. Nick, Dr. Charles PGY3, Dr. Santizo PGY2 Type of Anesthesia: General Endo, Local Pre-Operative Diagnosis: acute cholecystitis Operative Findings: gangrenous acutely inflammed gallbladder Post-Operative Diagnosis: gangrenous acute cholecystitis Operation Performed: laparoscopic cholecystectomy Specimen/Specimens Removed: gallbladder and stones Estimated Blood Loss: EBL {In ML}: 250 Blood Products Given: N/A Drains Used: Keshawn Post-Op Condition: Good Date of Surgery/Procedure: 06/27/17 Time of Surgery/Procedure: 17:18
[2017-06-27] MEDS ORDERED: HYDROmorphone 1 mg/ml ISec IVP PRN (17:19)
[2017-06-27] MEDS ORDERED: HYDROmorphone 0.5 mg/0.5 ml ISec IVP PRN (17:31)
[2017-06-27] MEDS: HYDROmorphone 0.5 mg/0.5 ml ISec IVP PRN (21:40)
--- NOTE | 2017-06-27 21:41 | OP ---
PROCEDURE DATE: PREOPERATIVE DIAGNOSIS: Acute cholecystitis. POSTOPERATIVE DIAGNOSIS: Gangrenous cholecystitis. PROCEDURE: Laparoscopic cholecystectomy. SURGEON: Storm Sewell MD SURGERY SCHEDULING COORDINATOR: Sandoval. SECOND SURGERY SCHEDULING COORDINATOR: Araceli. THIRD SURGERY SCHEDULING COORDINATOR: Sukhdev. TYPE OF ANESTHESIA: General with endotracheal intubation. IV FLUIDS: Crystalloid. ESTIMATED BLOOD LOSS: 250 mL INTRAOPERATIVE FINDINGS: Gangrenous cholecystitis. SPECIMEN: Gallbladder with stones. BRIEF HISTORY: Mrs. Mckinnon is a very pleasant 57-year-old female, who came to the hospital complaining of right upper quadrant abdomina pain and upon further investigation, the patient was found to have cholelithiasis, but no evidence of pericholecystic fluid or gall bladder wall thickening, no evidence of cholecystitis. However, the patient's exam was concerning and the patient was taken to the operating room for the above stated procedure. All the risks and benefits of the procedure were explained to the patient and with the patient having a full understanding of all the risks and benefits involved, informed consent was obtained, and the patient was taken to the operating room for above stated procedure. DESCRIPTION OF PROCEDURE: The patient was brought into the operating room and placed supine on operating room table. Bilateral Flowtron boots were applied to the patient's lower extremities. After successful induction of anesthesia and successful endotracheal intubation by the anesthesia team, the patient's abdomen was prepped with ChloraPrep stick and draped in the standard surgical fashion. Prior to the beginning of the procedure, a timeout was called in the room and everyone in the room were in agreement. Using a Veress needle, the patient's abdomen was entered at the umbilicus and pneumoperitoneum was achieved with good opening pressures. Once this was accomplished, using 11-blade scalpel knife, approximately a 1-cm incision was made in a longitudinal fashion in the umbilicus and subsequent to that an 11-mm trocar was introduced into the patient's abdomen. At that point in time, a 5-mm 0 degree scope was introduced into the patient's abdomen and abdomen was inspected. We immediately were able to visualize the omentum right in the area where the gallbladder should been. Then, attention was turned to the subxiphoid area. Using an 11 blade scalpel knife, a 5 mm incision was made in a transverse fashion and subsequent to that 5 mm trocar was introduced into the patient's abdomen. Then, attention was turned to the right side of the patient's abdomen. Using the 11-blade scalpel knife, two 5-mm incisions were made in a transverse fashion and subsequent to that two 5-mm trocars were introduced into the patient's abdomen. At that point in time, using suction and irrigation device, the omentum was teased off the gallbladder and we visualized the gallbladder that appeared to be necrotic. At this point in time, gallbladder was grasped by the fundus and the infundibulum and using [place] dissector, cystic duct and cystic artery were dissected out and a critical view of safety was achieved. At that point in time, the cystic duct was clipped with two clips proximal, one distal and transected with laparoscopic scissors. Same thing was done for the cystic artery. It was clipped with two clips proximal and one distal and transected with laparoscopic scissors. Upon further dissection, we encountered the posterior branch of the cystic artery. The posterior branch appeared to have bleeding. So, several clips were placed on the posterior branch as well as some cauterization was done. At this point in time, the gall bladder was dissected off the gallbladder fossa using hook electrical cautery and once this was accomplished, an EndoCatch bag was introduced into the patient's abdomen; gallbladder was placed inside of the bag and the bag was closed. At that point in time, we used several Surgicels that were placed into the gall bladder fossa for hemostasis. The patient's abdominal cavity was copiously irrigated and the fluid was suctioned out. At that point in time, we made a decision to leave a #19 Keshawn drain. The Keshawn was brought out through one of the right-sided trocar site and was secured in place with a 2-0 silk suture. At that point in time, the patient's abdomen and gall bladder fossa were inspected for hemostasis. Hemostasis was confirmed. The 11 mm trocar together with the EndoCatch bag and gallbladder were removed from the patient's abdomen and passed off to the [facility] as a specimen. Fascial layer at the umbilical port site was closed with one interrupted 0-Vicryl suture on UR-6 needle. Subsequent to that, the patient's abdomen was fully desufflated, the rest of the trocars were removed from the patient's abdomen, and the skin was closed with 4-0 Monocryl suture in a running subcuticular fashion. At the end of the procedure, incision sites were infiltrated with Marcaine anesthetic. The patient's abdomen was washed and dried and a Dermabond was applied to the incision sites as well as a 4 x 4 and Tegaderm applied to the site of the insertion of the Keshawn drain. The patient was successfully extubated by the anesthesia team, transferred to the stretcher, and taken to the recovery room in a stable condition. At the end of the procedure, all instrument counts, needles, and sponges were correct. Storm Sewell MD
[2017-06-28] MEDS: Lactated Ringer's 1,000 ML IV SCH ×4 (01:00→09:24)
[2017-06-28] MEDS: HYDROmorphone 0.5 mg/0.5 ml ISec IVP PRN (01:25)
[2017-06-28] MEDS: Piperacillin/Tazobact 3.375 GM in Sodium Chloride 0.9% 100 ML IVPB SCH ×5 (03:56→21:53)
[2017-06-28 06:38] LABS: HEMATOCRIT 35.8 % (34.0-47.0); MEAN CELL VOLUME 83.5 fl (81.0-99.0); MEAN CORPUSCULAR HEMOGLOBIN 29.1 pg (27.0-31.0); MEAN CORPUSCULAR HGB CONC 34.9 g/dL (33.0-37.0); RED CELL DISTRIBUTION WIDTH 13.8 % (11.5-14.5)
[2017-06-28 06:50] LABS: ALB/GLOB RATIO 1.3 (1.0-2.1); ALKALINE PHOSPHATASE 72 U/L (38-126); ALT/SGPT 52 U/L (9-52); AST/SGOT 46 U/L (14-36); BILIRUBIN,TOTAL 0.7 mg/dl (0.2-1.3); BLOOD UREA NITROGEN 7 mg/dl (7-17); CARBON DIOXIDE 27 mmol/L (22-30); CHLORIDE 106 mmol/L (98-107); GFR AFRICAN-AMERICAN > 60; GLUCOSE,RANDOM 129 mg/dL (65-105); SODIUM 141 mmol/l (132-148); TOTAL PROTEIN 6.8 G/DL (6.3-8.2)
--- NOTE | 2017-06-28 07:32 | CP.PCM.PN ---
Subjective - Date & Time of Evaluation Date of Evaluation: 06/28/17 Time of Evaluation: 07:32 - Subjective Subjective: pt doing well, pain controlled s/p lap francisca robinson drain in place mild/mod serosanguinous dc noted. am labs noted. pain controlled. no f/c, n/v/d. Objective - Vital Signs/Intake and Output Vital Signs (last 24 hours): Temp Pulse Resp BP Pulse Ox 98.5 F 61 20 150/80 98 06/28/17 05:00 06/28/17 05:00 06/28/17 05:00 06/28/17 05:00 06/28/17 05:00 Intake and Output: 06/28/17 06/28/17 06:59 18:59 Intake Total 1760 Output Total 180 Balance 1580 - Medications Medications: Current Medications Acetaminophen (Tylenol 325mg Tab) 650 mg PO Q4 PRN PRN Reason: Fever >100.4 F Famotidine (Pepcid) 20 mg IVP Q12 [facility] Last Admin: 06/27/17 20:55 Dose: 20 mg Hydromorphone HCl (Dilaudid) 1 mg IVP Q4 PRN PRN Reason: Pain, severe (8-10) Hydromorphone HCl (Dilaudid) 0.5 mg IVP Q3 PRN PRN Reason: Pain, moderate (4-7) Stop: 06/29/17 17:21 Last Admin: 06/28/17 01:25 Dose: 0.5 mg Piperacillin Sod/Tazobactam (Sod 3.375 gm/ Sodium Chloride) 100 mls @ 100 mls/ hr IVPB Q6 [facility]OT[facility] PRN Reason: Protocol Last Admin: 06/28/17 03:56 Dose: 100 mls/hr Lactated Ringer's (Lactated Ringer's) 1,000 mls @ 125 mls/hr IV .Q8H [facility] Last Admin: 06/28/17 01:00 Dose: Not Given Lactated Ringer's (Lactated Ringer's) 1,000 mls @ 100 mls/hr IV .Q10H [facility] Last Admin: 06/28/17 06:59 Dose: 100 mls/hr Ondansetron HCl (Zofran Inj) 4 mg IVP Q4 [facility] Last Admin: 06/28/17 05:00 Dose: 4 mg - Labs Labs: 10/17/17 06:05 06/28/17 06:05 PT 13.0 Seconds (9.8-13.1) 06/27/17 06:20 INR 1.2 (0.9-1.2) 06/27/17 06:20 APTT 29.9 Seconds (25.6-37.1) 06/27/17 06:20 - Constitutional Appears: Well, Non-toxic, No Acute Distress - Head Exam Head Exam: ATRAUMATIC, NORMAL INSPECTION, NORMOCEPHALIC - Eye Exam Eye Exam: EOMI, Normal appearance, PERRL Pupil Exam: NORMAL ACCOMODATION, PERRL - ENT Exam ENT Exam: Mucous Membranes Moist, Normal Exam - Neck Exam Neck Exam: Full ROM, Normal Inspection. absent: Lymphadenopathy - Respiratory Exam Respiratory Exam: Clear to Ausculation Bilateral, NORMAL BREATHING PATTERN - Cardiovascular Exam Cardiovascular Exam: REGULAR RHYTHM, RRR, +S1, +S2. absent: Murmur - GI/Abdominal Exam GI & Abdominal Exam: Soft, Normal Bowel Sounds. absent: Tenderness Additional comments: drain noted. dsg c/d/i - Extremities Exam Extremities Exam: Full ROM, Normal Capillary Refill, Normal Inspection. absent : Joint Swelling, Pedal Edema - Back Exam Back Exam: NORMAL INSPECTION - Neurological Exam Neurological Exam: Alert, Awake, CN II-XII Intact, Normal Gait, Oriented x3 - Psychiatric Exam Psychiatric exam: Normal Affect, Normal Mood - Skin Skin Exam: Dry, Intact, Normal Color, Warm Assessment and Plan (1) DVT prophylaxis Assessment & Plan: scd nad aehose ambulation Status: Acute (2) Cholelithiasis Assessment & Plan: pod 1 lap francisca w/ robinson drain in place zosyn pain control surgery dc as per surgery Status: Acute
--- NOTE | 2017-06-28 09:03 | CP.PCM.PN ---
<Neymar Santizo - Last Filed: 06/28/17 09:01> Subjective - Date & Time of Evaluation Date of Evaluation: 06/28/17 Time of Evaluation: 06:35 - Subjective Subjective: Pt S&E this AM. Reports some pain along surgical incisional sites. Denies fever/ chills, n/v. No acute events over night. JULIA drain output 180ccs/24hrs, sanguinous. VSS. Objective - Vital Signs/Intake and Output Vital Signs (last 24 hours): Temp Pulse Resp BP Pulse Ox 97.8 F 78 20 144/88 99 06/28/17 08:08 06/28/17 08:08 06/28/17 08:08 06/28/17 08:08 06/28/17 08:08 Intake and Output: 06/28/17 06/28/17 06:59 18:59 Intake Total 1760 Output Total 180 Balance 1580 - Medications Medications: Current Medications Acetaminophen (Tylenol 325mg Tab) 650 mg PO Q4 PRN PRN Reason: Fever >100.4 F Famotidine (Pepcid) 20 mg IVP Q12 [facility] Last Admin: 06/27/17 20:55 Dose: 20 mg Hydromorphone HCl (Dilaudid) 1 mg IVP Q4 PRN PRN Reason: Pain, severe (8-10) Hydromorphone HCl (Dilaudid) 0.5 mg IVP Q3 PRN PRN Reason: Pain, moderate (4-7) Stop: 06/29/17 17:21 Last Admin: 06/28/17 01:25 Dose: 0.5 mg Piperacillin Sod/Tazobactam (Sod 3.375 gm/ Sodium Chloride) 100 mls @ 100 mls/ hr IVPB Q6 [facility] PRN Reason: Protocol Last Admin: 06/28/17 03:56 Dose: 100 mls/hr Lactated Ringer's (Lactated Ringer's) 1,000 mls @ 125 mls/hr IV .Q8H [facility] Last Admin: 06/28/17 01:00 Dose: Not Given Ondansetron HCl (Zofran Inj) 4 mg IVP Q4 [facility] Last Admin: 06/28/17 05:00 Dose: 4 mg - Labs Labs: 06/28/17 06:05 06/28/17 06:05 PT 13.0 Seconds (9.8-13.1) 06/27/17 06:20 INR 1.2 (0.9-1.2) 06/27/17 06:20 APTT 29.9 Seconds (25.6-37.1) 06/27/17 06:20 - Constitutional Appears: No Acute Distress - Head Exam Head Exam: NORMOCEPHALIC - ENT Exam ENT Exam: Mucous Membranes Moist - Respiratory Exam Respiratory Exam: NORMAL BREATHING PATTERN - Cardiovascular Exam Cardiovascular Exam: +S1, +S2 - GI/Abdominal Exam GI & Abdominal Exam: Soft, Tenderness. absent: Distended, Firm, Guarding, Rigid - Neurological Exam Neurological Exam: Alert, Awake, Oriented x3 - Psychiatric Exam Psychiatric exam: Normal Mood - Skin Skin Exam: Dry, Intact, Warm Assessment and Plan - Assessment and Plan (Free Text) Assessment: 57F s/p laparoscopic cholecystectomy -Clear liquid diet -ADAT -ABx -Analgesics/ Anti-emetics -Monitor JULIA drain output -Encourage IS use and ambulation -DVT/GI ppx - Further recs per Dr. Donato Santizo PGY-2 <Storm Sewell - Last Filed: 06/28/17 11:52> Subjective - Date & Time of Evaluation Time of Evaluation: 11:50 - Subjective Subjective: Patient was seen and examined at the bedside. Agree with resident's note above. Objective - Vital Signs/Intake and Output Vital Signs (last 24 hours): Temp Pulse Resp BP Pulse Ox 97.8 F 78 20 144/88 99 06/28/17 08:08 06/28/17 08:08 06/28/17 08:08 06/28/17 08:08 06/28/17 08:08 Intake and Output: 06/28/17 06/28/17 06:59 18:59 Intake Total 1760 Output Total 180 Balance 1580 - Medications Medications: Current Medications Famotidine (Pepcid) 20 mg IVP Q12 [facility] Last Admin: 06/28/17 09:24 Dose: 20 mg Piperacillin Sod/Tazobactam (Sod 3.375 gm/ Sodium Chloride) 100 mls @ 100 mls/ hr IVPB Q6 [facility] PRN Reason: Protocol Last Admin: 06/28/17 09:26 Dose: 100 mls/hr Ondansetron HCl (Zofran Inj) 4 mg IVP Q4 [facility] Last Admin: 06/28/17 09:24 Dose: 4 mg Oxycodone/Acetaminophen (Percocet 5/325 Mg Tab) 1 tab PO Q4 PRN PRN Reason: Pain, moderate (4-7) Stop: 07/01/17 11:50 Oxycodone/Acetaminophen (Percocet 5/325 Mg Tab) 2 tab PO Q4 PRN PRN Reason: Pain, severe (8-10) Stop: 07/01/17 11:50 - Labs Labs: 06/28/17 06:05 06/28/17 06:05 PT 13.0 Seconds (9.8-13.1) 06/27/17 06:20 INR 1.2 (0.9-1.2) 06/27/17 06:20 APTT 29.9 Seconds (25.6-37.1) 06/27/17 06:20 Assessment and Plan - Assessment and Plan (Free Text) Plan: - start regular diet - pain control - repeat labs in am - Will follow
[2017-06-28] MEDS ORDERED: HYDROmorphone 0.5 mg/0.5 ml ISec IVP PRN (09:45)
[2017-06-28] MEDS ORDERED: Oxycodone/Acetaminophen 5/325 mg Tab PO PRN (11:49)
[2017-06-28] MEDS ORDERED: PROPYLTHIOURACIL 50 MG PO SCH (15:30)
[2017-06-28] MEDS: Oxycodone/Acetaminophen 5/325 mg Tab PO PRN ×2 (16:16→21:51)
[2017-06-29] MEDS: Piperacillin/Tazobact 3.375 GM in Sodium Chloride 0.9% 100 ML IVPB SCH ×2 (04:13→11:20)
[2017-06-29] MEDS: Oxycodone/Acetaminophen 5/325 mg Tab PO PRN (04:16)
[2017-06-29 06:25] VITALS: RESP 20
[2017-06-29 06:30] LABS: HEMATOCRIT 35.9 % (34.0-47.0); MEAN CELL VOLUME 83.9 fl (81.0-99.0); MEAN CORPUSCULAR HGB CONC 34.5 g/dL (33.0-37.0); RED CELL DISTRIBUTION WIDTH 14.1 % (11.5-14.5); WHITE BLOOD COUNT 8.8 K/uL (4.8-10.8)
[2017-06-29 06:45] LABS: ALB/GLOB RATIO 1.2 (1.0-2.1); ALKALINE PHOSPHATASE 58 U/L (38-126); ALT/SGPT 37 U/L (9-52); AST/SGOT 41 U/L (14-36); BILIRUBIN,TOTAL 0.5 mg/dl (0.2-1.3); BLOOD UREA NITROGEN 11 mg/dl (7-17); CALCIUM 8.7 mg/dL (8.4-10.2); CARBON DIOXIDE 26 mmol/L (22-30); CHLORIDE 107 mmol/L (98-107); GFR AFRICAN-AMERICAN > 60; GLUCOSE,RANDOM 102 mg/dL (65-105); POTASSIUM 3.9 MMOL/L (3.6-5.0); SODIUM 141 mmol/l (132-148); TOTAL PROTEIN 6.4 G/DL (6.3-8.2)
--- NOTE | 2017-06-29 07:27 | CP.PCM.PN ---
<AraceliLizAlexAdam - Last Filed: 06/29/17 07:24> Subjective - Date & Time of Evaluation Date of Evaluation: 06/29/17 Time of Evaluation: 07:24 - Subjective Subjective: Surgery: Dr. Sewell Patient feeling better today. Pain controlled with PO pain medication. She has not been ambulating much. She is tolerating diet w/o n/v. She denies f/c. Per nursing no acute events overnight, drain output was 150cc/12hrs of serousanguineous fluid. Objective - Vital Signs/Intake and Output Vital Signs (last 24 hours): Temp Pulse Resp BP Pulse Ox 98.2 F 76 20 142/80 98 06/29/17 05:00 06/29/17 05:00 06/29/17 05:00 06/29/17 05:00 06/29/17 05:00 Intake and Output: 06/29/17 06/29/17 06:59 18:59 Intake Total 200 Output Total 160 Balance 40 - Medications Medications: Current Medications Atorvastatin Calcium (Lipitor) 10 mg PO DAILY [facility] Last Admin: 06/28/17 21:43 Dose: 10 mg Famotidine (Pepcid) 20 mg PO BID [facility] Fluoxetine HCl (Prozac) 10 mg PO DAILY [facility] Last Admin: 06/28/17 16:12 Dose: 10 mg Gabapentin (Neurontin) 300 mg PO TID [facility] Last Admin: 06/28/17 16:16 Dose: 300 mg Home Med (Propylthiouracil [Propylthiouracil]) 50 mg PO DAILY [facility] Piperacillin Sod/Tazobactam (Sod 3.375 gm/ Sodium Chloride) 100 mls @ 100 mls/ hr IVPB Q6 [facility] PRN Reason: Protocol Last Admin: 06/29/17 04:13 Dose: 100 mls/hr Losartan Potassium (Cozaar) 50 mg PO DAILY [facility] Last Admin: 06/28/17 16:49 Dose: 50 mg Ondansetron HCl (Zofran Inj) 4 mg IVP Q4 [facility] Last Admin: 06/29/17 05:21 Dose: 4 mg Oxycodone/Acetaminophen (Percocet 5/325 Mg Tab) 1 tab PO Q4 PRN PRN Reason: Pain, moderate (4-7) Stop: 07/01/17 11:50 Oxycodone/Acetaminophen (Percocet 5/325 Mg Tab) 2 tab PO Q4 PRN PRN Reason: Pain, severe (8-10) Stop: 07/01/17 11:50 Last Admin: 06/29/17 04:16 Dose: 2 tab Propylthiouracil (Propylthiouracil) 50 mg PO DAILY [facility] Last Admin: 06/28/17 16:12 Dose: 50 mg - Labs Labs: 06/29/17 06:10 06/29/17 06:10 PT 13.0 Seconds (9.8-13.1) 06/27/17 06:20 INR 1.2 (0.9-1.2) 06/27/17 06:20 APTT 29.9 Seconds (25.6-37.1) 06/27/17 06:20 - Constitutional Appears: Non-toxic, No Acute Distress - Head Exam Head Exam: ATRAUMATIC, NORMOCEPHALIC - Eye Exam Eye Exam: EOMI, Normal appearance - ENT Exam ENT Exam: Mucous Membranes Moist - Respiratory Exam Respiratory Exam: NORMAL BREATHING PATTERN. absent: Respiratory Distress - Cardiovascular Exam Cardiovascular Exam: REGULAR RHYTHM. absent: Tachycardia - GI/Abdominal Exam GI & Abdominal Exam: Soft, Tenderness (hetal-incisional which is appropriate ). absent: Guarding, Rebound Additional comments: right Keshawn drain w/ SA fluid output 150cc/12hr - Neurological Exam Neurological Exam: Alert, Awake - Psychiatric Exam Psychiatric exam: Normal Affect, Normal Mood - Skin Skin Exam: Dry, Warm Assessment and Plan - Assessment and Plan (Free Text) Assessment: 57 y/o F w/ acute gangrenous cholecystitis s/p lap francisca POD2 Plan: -encourage OOB and IS use -monitor drain output -cont reg diet -pain control -further recs per Dr[facility] Sewell [facility] PGY3 <Storm Sewell - Last Filed: 06/29/17 11:51> Subjective - Date & Time of Evaluation Time of Evaluation: 09:15 - Subjective Subjective: Patient was seen and examined at the bedside. Agree with resident's note above. Objective - Vital Signs/Intake and Output Vital Signs (last 24 hours): Temp Pulse Resp BP Pulse Ox 98.1 F 63 20 131/79 92 L 06/29/17 08:50 06/29/17 11:19 06/29/17 08:50 06/29/17 11:19 06/29/17 08:50 Intake and Output: 06/29/17 06/29/17 06:59 18:59 Intake Total 200 Output Total 160 Balance 40 - Medications Medications: Current Medications Atorvastatin Calcium (Lipitor) 10 mg PO DAILY [facility] Last Admin: 06/29/17 11:19 Dose: 10 mg Famotidine (Pepcid) 20 mg PO BID [facility] Last Admin: 06/29/17 11:18 Dose: 20 mg Fluoxetine HCl (Prozac) 10 mg PO DAILY [facility] Last Admin: 06/29/17 11:20 Dose: 10 mg Gabapentin (Neurontin) 300 mg PO TID [facility] Last Admin: 06/29/17 11:18 Dose: 300 mg Home Med (Propylthiouracil [Propylthiouracil]) 50 mg PO DAILY [facility] Piperacillin Sod/Tazobactam (Sod 3.375 gm/ Sodium Chloride) 100 mls @ 100 mls/ hr IVPB Q6 [facility] PRN Reason: Protocol Last Admin: 06/29/17 11:20 Dose: 100 mls/hr Losartan Potassium (Cozaar) 50 mg PO DAILY [facility] Last Admin: 06/29/17 11:19 Dose: 50 mg Ondansetron HCl (Zofran Inj) 4 mg IVP Q4 [facility] Last Admin: 06/29/17 05:21 Dose: 4 mg Oxycodone/Acetaminophen (Percocet 5/325 Mg Tab) 1 tab PO Q4 PRN PRN Reason: Pain, moderate (4-7) Stop: 07/01/17 11:50 Oxycodone/Acetaminophen (Percocet 5/325 Mg Tab) 2 tab PO Q4 PRN PRN Reason: Pain, severe (8-10) Stop: 07/01/17 11:50 Last Admin: 06/29/17 04:16 Dose: 2 tab Propylthiouracil (Propylthiouracil) 50 mg PO DAILY [facility] Last Admin: 06/29/17 11:20 Dose: 50 mg - Labs Labs: 06/29/17 06:10 06/29/17 06:10 PT 13.0 Seconds (9.8-13.1) 06/27/17 06:20 INR 1.2 (0.9-1.2) 06/27/17 06:20 APTT 29.9 Seconds (25.6-37.1) 06/27/17 06:20 Assessment and Plan - Assessment and Plan (Free Text) Plan: - remove Keshawn drain - Augmentin 875/125 mg po Q12h for 1 week - patient is clear for discharge from surgical stand point - Patient will follow up with me in the office in 10 days to 2 weeks for post- op visit
--- NOTE | 2017-06-29 08:23 | CP.PCM.PN ---
Subjective - Date & Time of Evaluation Date of Evaluation: 06/29/17 Time of Evaluation: 08:22 - Subjective Subjective: pt doing well, pain controlled. dsg c/d/i. still w/ serosanguinous d/c in rolo drain but appears to be less so. no f/c, n/v/d. bw noted and is wnl. surgical consult appriciated. Objective - Vital Signs/Intake and Output Vital Signs (last 24 hours): Temp Pulse Resp BP Pulse Ox 98.2 F 76 20 142/80 98 06/29/17 05:00 06/29/17 05:00 06/29/17 05:00 06/29/17 05:00 06/29/17 05:00 Intake and Output: 06/29/17 06/29/17 06:59 18:59 Intake Total 200 Output Total 160 Balance 40 - Medications Medications: Current Medications Atorvastatin Calcium (Lipitor) 10 mg PO DAILY [facility] Last Admin: 06/28/17 21:43 Dose: 10 mg Famotidine (Pepcid) 20 mg PO BID [facility] Fluoxetine HCl (Prozac) 10 mg PO DAILY [facility] Last Admin: 06/28/17 16:12 Dose: 10 mg Gabapentin (Neurontin) 300 mg PO TID [facility] Last Admin: 06/28/17 16:16 Dose: 300 mg Home Med (Propylthiouracil [Propylthiouracil]) 50 mg PO DAILY [facility] Piperacillin Sod/Tazobactam (Sod 3.375 gm/ Sodium Chloride) 100 mls @ 100 mls/ hr IVPB Q6 [facility] PRN Reason: Protocol Last Admin: 06/29/17 04:13 Dose: 100 mls/hr Losartan Potassium (Cozaar) 50 mg PO DAILY [facility] Last Admin: 06/28/17 16:49 Dose: 50 mg Ondansetron HCl (Zofran Inj) 4 mg IVP Q4 [facility] Last Admin: 06/29/17 05:21 Dose: 4 mg Oxycodone/Acetaminophen (Percocet 5/325 Mg Tab) 1 tab PO Q4 PRN PRN Reason: Pain, moderate (4-7) Stop: 07/01/17 11:50 Oxycodone/Acetaminophen (Percocet 5/325 Mg Tab) 2 tab PO Q4 PRN PRN Reason: Pain, severe (8-10) Stop: 07/01/17 11:50 Last Admin: 06/29/17 04:16 Dose: 2 tab Propylthiouracil (Propylthiouracil) 50 mg PO DAILY [facility] Last Admin: 06/28/17 16:12 Dose: 50 mg - Labs Labs: 06/29/17 06:10 06/29/17 06:10 PT 13.0 Seconds (9.8-13.1) 06/27/17 06:20 INR 1.2 (0.9-1.2) 06/27/17 06:20 APTT 29.9 Seconds (25.6-37.1) 06/27/17 06:20 - Constitutional Appears: Well, Non-toxic, No Acute Distress - Head Exam Head Exam: ATRAUMATIC, NORMAL INSPECTION, NORMOCEPHALIC - Eye Exam Eye Exam: EOMI, Normal appearance, PERRL Pupil Exam: NORMAL ACCOMODATION, PERRL - ENT Exam ENT Exam: Mucous Membranes Moist, Normal Exam - Neck Exam Neck Exam: Full ROM, Normal Inspection. absent: Lymphadenopathy - Respiratory Exam Respiratory Exam: Clear to Ausculation Bilateral, NORMAL BREATHING PATTERN - Cardiovascular Exam Cardiovascular Exam: REGULAR RHYTHM, RRR, +S1, +S2. absent: Murmur - GI/Abdominal Exam GI & Abdominal Exam: Soft, Normal Bowel Sounds. absent: Tenderness Additional comments: rolo noted, dsg c/d/i - Extremities Exam Extremities Exam: Full ROM, Normal Capillary Refill, Normal Inspection. absent : Joint Swelling, Pedal Edema - Back Exam Back Exam: NORMAL INSPECTION - Neurological Exam Neurological Exam: Alert, Awake, CN II-XII Intact, Normal Gait, Oriented x3 - Psychiatric Exam Psychiatric exam: Normal Affect, Normal Mood - Skin Skin Exam: Dry, Intact, Normal Color, Warm Assessment and Plan (1) DVT prophylaxis Status: Acute (2) Cholelithiasis Status: Acute - Assessment and Plan (Free Text) Assessment: (1) DVT prophylaxis Assessment & Plan: scd nad aehose ambulation Status: Acute (2) Cholelithiasis Assessment & Plan: pod 2 lap francisca w/ robinson drain in place zosyn pain control surgery dc as per surgery Status: Acute
[2017-06-29 08:53] VITALS: BP 131/79; PULSE 63; TEMP 98.1; O2SAT 92
--- NOTE | 2017-06-29 14:37 | CP.PCM.DIS ---
Provider - Provider Date of Admission: 06/24/17 15:41 Attending physician: Maximino Yoon MD Time Spent in preparation of Discharge (in minutes): 15 Diagnosis - Discharge Diagnosis (1) DVT prophylaxis Status: Acute (2) Cholelithiasis Status: Acute Hospital Course - Lab Results Lab Results: Most Recent Lab Values WBC 8.8 K/uL (4.8-10.8) 06/29/17 06:10 RBC 4.28 Mil/uL (3.80-5.20) 06/29/17 06:10 Hgb 12.4 g/dL (12.0-16.0) 06/29/17 06:10 Hct 35.9 % (34.0-47.0) 06/29/17 06:10 MCV 83.9 fl (81.0-99.0) 06/29/17 06:10 MCH 29.0 pg (27.0-31.0) 06/29/17 06:10 MCHC 34.5 g/dL (33.0-37.0) 06/29/17 06:10 RDW 14.1 % (11.5-14.5) 06/29/17 06:10 Plt Count 180 K/uL (130-400) 06/29/17 06:10 MPV 8.9 fl (7.2-11.7) 06/26/17 05:30 Gran % TEST NOT PERFORMED 06/24/17 08:20 Neut % (Auto) 49.8 % (50.0-75.0) L 06/26/17 05:30 Lymph % (Auto) 31.6 % (20.0-40.0) 06/26/17 05:30 [place] % (Auto) 9.9 % (0.0-10.0) 06/26/17 05:30 Eos % (Auto) 7.9 % (0.0-4.0) H 06/26/17 05:30 Baso % (Auto) 0.8 % (0.0-2.0) 06/26/17 05:30 Gran # TEST NOT PERFORMED 06/24/17 08:20 Neut # 3.1 K/uL (1.8-7.0) 06/26/17 05:30 Lymph # 1.9 K/uL (1.0-4.3) 06/26/17 05:30 [place] # 0.6 K/uL (0.0-0.8) 06/26/17 05:30 Eos # 0.5 K/uL (0.0-0.7) 06/26/17 05:30 Baso # 0.0 K/uL (0.0-0.2) 06/26/17 05:30 Neutrophils % (Manual) 84 % (42-75) H 06/24/17 08:20 Band Neutrophils % 1 % (0-2) 06/24/17 08:20 Lymphocytes % (Manual) 11 % (20-50) L 06/24/17 08:20 Monocytes % (Manual) 4 % (0-10) 06/24/17 08:20 Platelet Estimate Normal (NORMAL) 06/24/17 08:20 Large Platelets Present 06/24/17 08:20 Poikilocytosis (manual Slight 06/24/17 08:20 Anisocytosis (manual) Slight 06/24/17 08:20 Tear Drop Cells Slight 06/24/17 08:20 Ovalocytes Slight 06/24/17 08:20 PT 13.0 Seconds (9.8-13.1) 06/27/17 06:20 INR 1.2 (0.9-1.2) 06/27/17 06:20 APTT 29.9 Seconds (25.6-37.1) 06/27/17 06:20 Sodium 141 mmol/l (132-148) 06/29/17 06:10 Potassium 3.9 MMOL/L (3.6-5.0) 06/29/17 06:10 Chloride 107 mmol/L (98-107) 06/29/17 06:10 Carbon Dioxide 26 mmol/L (22-30) 06/29/17 06:10 Anion Gap 12 (10-20) 06/29/17 06:10 BUN 11 mg/dl (7-17) 06/29/17 06:10 Creatinine 1.0 mg/dL (0.7-1.2) 06/29/17 06:10 Est GFR ( Amer) > 60 06/29/17 06:10 Est GFR (Non-Af Amer) 58 06/29/17 06:10 Random Glucose 102 mg/dL (65-105) 06/29/17 06:10 Calcium 8.7 mg/dL (8.4-10.2) 06/29/17 06:10 Total Bilirubin 0.5 mg/dl (0.2-1.3) 06/29/17 06:10 AST 41 U/L (14-36) H 06/29/17 06:10 ALT 37 U/L (9-52) 06/29/17 06:10 Alkaline Phosphatase 58 U/L (38-126) 06/29/17 06:10 Total Protein 6.4 G/DL (6.3-8.2) 06/29/17 06:10 Albumin 3.6 g/dL (3.5-5.0) 06/29/17 06:10 Globulin 2.9 gm/dL (2.2-3.9) 06/29/17 06:10 Albumin/Globulin Ratio 1.2 (1.0-2.1) 06/29/17 06:10 Lipase 48 U/L (23-300) 06/24/17 08:20 Urine Color Straw (YELLOW) 06/24/17 04:30 Urine Clarity Clear (Clear) 06/24/17 04:30 Urine pH 8.0 (5.0-8.0) 06/24/17 04:30 Ur Specific [place] 1.029 (1.003-1.030) 06/24/17 04:30 Urine Protein 100 mg/dL (NEGATIVE) 06/24/17 04:30 Urine Glucose (UA) 50 mg/dL (Normal) 06/24/17 04:30 Urine Ketones Trace mg/dL (NEGATIVE) 06/24/17 04:30 Urine Blood Negative (NEGATIVE) 06/24/17 04:30 Urine Nitrate Negative (NEGATIVE) 06/24/17 04:30 Urine Bilirubin Negative (NEGATIVE) 06/24/17 04:30 Urine Urobilinogen 0.2-1.0 mg/dL (0.2-1.0) 06/24/17 04:30 Ur Leukocyte Esterase Neg [place]/uL (Negative) 06/24/17 04:30 Urine RBC (Auto) 1 /hpf (0-3) 06/24/17 04:30 Urine Microscopic WBC 1 /hpf (0-5) 06/24/17 04:30 Ur Squamous Epith Cells 1 /hpf (0-5) 06/24/17 04:30 Blood Type O POSITIVE 06/27/17 06:20 Blood Type Confirm O POSITIVE 06/27/17 07:05 Antibody Screen Negative 06/27/17 06:20 Crossmatch See Detail 06/27/17 06:20 BBK History Checked No verified bt 06/27/17 06:20 Discharge Exam - Head Exam Head Exam: ATRAUMATIC, NORMAL INSPECTION, NORMOCEPHALIC Discharge Plan - Discharge Medications Prescriptions: Amoxicillin/Clavulanate [Augmentin 875 MG-125 MG] 1 tab PO BID #14 tab Ondansetron ODT [Zofran ODT] 4 mg PO Q6 PRN #16 odt PRN Reason: Nausea/Vomiting oxyCODONE/Acetaminophen [Percocet 5/325 mg Tab] 1 tab PO Q4H PRN #20 tab PRN Reason: abd pain traMADol [Ultram] 50 mg PO Q6 PRN #12 tab PRN Reason: abdominal pain - Follow Up Plan Condition: FAIR Disposition: HOME/ ROUTINE Instructions: Low Fat Diet (GEN), Laparoscopic Cholecystectomy (DC) Additional Instructions: follow up with [facility] in 2 days follow up with Surgeon Dr. Sewell as directed - [phone] cleared by surgery for dc and rolo removed. mateo po. rted prn. meds per med rec final dx- cholecystitis. Referrals: Maximino Yoon MD [Staff Provider] - Storm Sewell MD [Staff Provider] - Joon Payton, DNP, EMBOSSING MACHINE OPERATOR HELPER [Advanced Practice Nurse] -
== END 2017-06-29 14:33 | disposition home or self-care (01) | DRG 419 ==
LOC: H.ER 01:38 → H.ERHOLD 06:30 → H.MEDSURG1 08:36 → OBSVTOIN 15:41 → H.MEDSURG1 22:10
PROVIDERS: ADMIT Family Medicine; ATTEND Family Medicine
PROC: 0FT44ZZ Resection of Gallbladder, Percutaneous Endoscopic Approach (ICD-10-PCS; principal; 2017-06-27 14:30)
DX: K80.00 Calculus of gallbladder with acute cholecystitis without obstruction (principal); I10 Essential (primary) hypertension; M19.90 Unspecified osteoarthritis, unspecified site; F32.9 Major depressive disorder, single episode, unspecified; E05.90 Thyrotoxicosis, unspecified without thyrotoxic crisis or storm; Z91.040 Latex allergy status; Z87.891 Personal history of nicotine dependence; Z90.710 Acquired absence of both cervix and uterus